=== PATIENT | female | born 1990 ===

== ENCOUNTER 2018-02-16 12:53 | Emergency (ER) | payer MEDICAID ==
[2018-02-16 12:59] VITALS: RESP 18; O2SAT 99; BMI 32.9
--- NOTE | 2018-02-16 13:39 | ED PDOC ---
Arrival/HPI - General Chief Complaint: Abdominal Pain Past Medical History - Infectious Disease Hx of Infectious Diseases: None - Reproductive Menopause: No - Psychiatric Hx Substance Use: No - Anesthesia Hx Anesthesia: No Family/Social History Smoking Status: Former Smoker Hx Alcohol Use: No Hx Substance Use: No Allergies/Home Meds Allergies/Adverse Reactions: Allergies nupur Allergy (Verified 02/16/18 13:21) RASH Home Medications: Home Meds Medication Instructions Recorded Confirmed No Known Home Med 02/16/18 02/16/18 Physical Exam Vital Signs Temp Pulse Resp BP Pulse Ox 02/16/18 12:56 98.3 F 122 H 18 118/87 99 Disposition/Present on Arrival - Present on Arrival History of DVT/PE: No History of Uncontrolled Diabetes: No Urinary Catheter: No History of Decub. Ulcer: No History Surgical Site Infection Following: None - Disposition
--- NOTE | 2018-02-16 13:41 | ED PDOC ---
Arrival/HPI - General Historian: Patient - History of Present Illness Narrative History of Present Illness (Text): 02/16/18 13:45 27 year old female with no significant PMH presents to the emergency department complaining of intermittent non-bloody vomiting for the past 1.5 weeks. Patient reports associated constipation and intermittent mild lower abdominal cramping. She notes vaginal spotting yesterday, no clots, LMP 01/04/18. No reecnt travel or immobilization, h/o malignancy or DVT/PE. Pt anxious in ED. She denies fevers, chills, back pain, urinary symptoms, dizziness, headache, vision changes, vaginal discharge/odor, chest pain, SOB, diarrhea, numbness, weakness, pares thesias, calf pain, calf swelling, hemoptysis, cough, or any other complaint. Time/Duration: > week Symptom Course: Unchanged Activities at Onset: Light Context: Home <Krysta Kessler - Last Filed: 02/17/18 10:37> <Daniel Dominguez - Last Filed: 02/17/18 14:11> - General Chief Complaint: GI Problem Time Seen by Provider: 02/16/18 13:00 Past Medical History - Provider Review Nursing Documentation Reviewed: Yes - Infectious Disease Hx of Infectious Diseases: None - Reproductive Menopause: No - Psychiatric Hx Anxiety: Yes Hx Substance Use: No - Anesthesia Hx Anesthesia: No <Krysta Kessler - Last Filed: 02/17/18 10:37> Family/Social History - Physician Review Nursing Documentation Reviewed: Yes Family/Social History: No Known Family HX Smoking Status: Former Smoker Hx Alcohol Use: No Hx Substance Use: No <Krysta Kessler - Last Filed: 02/17/18 10:37> Allergies/Home Meds <Krysta Kessler - Last Filed: 02/17/18 10:37> <Daniel Dominguez - Last Filed: 02/17/18 14:11> Allergies/Adverse Reactions: Allergies nupur Allergy (Verified 02/16/18 13:21) RASH Review of Systems - Physician Review All systems were reviewed & negative as marked: Yes - Review of Systems Constitutional: Normal. absent: Fevers Eyes: Normal. absent: Vision Changes ENT: Normal. absent: Sinus Congestion Respiratory: Normal. absent: SOB, Cough Cardiovascular: Normal. absent: Chest Pain, Palpitations Gastrointestinal: Abdominal Pain, Constipation, Vomiting. absent: Diarrhea, Appetite Changes Genitourinary Female: Vaginal Bleeding. absent: Dysuria, Frequency, Hematuria Musculoskeletal: Normal. absent: Back Pain, Neck Pain Skin: Normal. absent: Rash Neurological: Normal. absent: Headache, Dizziness Endocrine: Normal Hemo/Lymphatic: Normal Psychiatric: Anxiety <Motter,Krysta - Last Filed: 02/17/18 10:37> Physical Exam Vital Signs Reviewed: Yes Vital Signs Temp Pulse Resp BP Pulse Ox 02/16/18 12:56 98.3 F 122 H 18 118/87 99 Temperature: Afebrile Blood Pressure: Normal Pulse: Tachycardic Respiratory Rate: Normal Appearance: Positive for: Well-Appearing, Non-Toxic, Comfortable Pain Distress: None Mental Status: Positive for: Alert and Oriented X 3 - Systems Exam Head: Present: Atraumatic, Normocephalic Pupils: Present: PERRL Extroacular Muscles: Present: EOMI Conjunctiva: Present: Normal Mouth: Present: Moist Mucous Membranes Neck: Present: Normal Range of Motion. No: Meningeal Signs, MIDLINE TENDERNESS, Lymphadenopathy Respiratory/Chest: Present: Clear to Auscultation, Good Air Exchange. No: Respiratory Distress, Accessory Muscle Use Cardiovascular: Present: Regular Rate and Rhythm, Normal S1, S2, Peripheal Pulses Present. No: Murmurs Abdomen: Present: Normal Bowel Sounds. No: Tenderness, Distention, Peritoneal Signs Back: Present: Normal Inspection Upper Extremity: Present: Normal Inspection, Normal ROM, NORMAL PULSES, Neurovascularly Intact, Capillary Refill < 2s. No: Cyanosis, Edema Lower Extremity: Present: Normal Inspection, NORMAL PULSES, Normal ROM, Neuro vascularly Intact, Capillary Refill < 2 s. No: Edema, CALF TENDERNESS, Debbie's Sign, Tenderness, Swelling Neurological: Present: GCS=15, CN II-XII Intact, Speech Normal, Motor Func Grossly Intact, Normal Sensory Function, Gait Normal Skin: Present: Warm, Dry, Normal Color. No: Rashes Lymphatic: Present: Cervical Adenopathy Psychiatric: Present: Alert, Oriented x 3, Normal Insight, Normal Concentration, Normal Affect, Anxious <Motter,Krysta - Last Filed: 02/17/18 10:37> Vital Signs Temp Pulse Resp BP Pulse Ox 02/16/18 17:51 98.1 F 104 H 18 122/88 99 02/16/18 12:56 98.3 F 122 H 18 118/87 99 <Daniel Dominguez - Last Filed: 02/17/18 14:11> Medical Decision Making ED Course and Treatment: 02/16/18 13:39 Impression: 27 year old female who presents to the emergency department complaining of vomiting. Plan: -- BBK -- Labs -- Urine culture -- POC Urine test -- Pelvic exam -- Urinalysis -- Transvaginal US -- Reassess and disposition Patient very well appearing on initial examination, however appears anxious as she was unaware she was . Patient on pulse ox, mildly tachycardic at 102 on my initial exam. Progress Notes: POC urine test positive; patient is A1; 6 weeks by LMP All labs unremarkable TV US shows live IUP at 8 weeks gestation O + blood type, no indication for Rhogam 17:00 Patient tolerating PO without vomiting, asking for a full meal as she is very hungry. Denies any SOB, chest pain, abdominal pain, or any other physical complaints. Tachycardia has improved, HR 86 on my re-evaluation after fluids and rest. Diagnostic testing results and plan of care discussed with patient, and strict instructions given regarding prescriptions, importance of follow up, and signs to return to Emergency Department, to include abdominal pain, vaginal bleeding, SOB, cough, headache, or any other new/worsening symptoms. Patient verbalizes understanding of discussion. Patient A&Ox3, ambulating with steady gait, stable for discharge home. Re-evaluation Time: 17:00 - Lab Interpretations I have reviewed the lab results: Yes Interpretation: All labs normal - RAD Interpretation Narrative RAD Interpretations (Text): Transvaginal Pelvic US: Findings: The uterus measures approximately 12.2 x 6.7 x 8.7 cm. Anteverted. There is a single intrauterine fetus present. 5 mm yolk sac. The gestational sac measures 3.5 cm and is compatible with a gestational age of 8 weeks 4 days. The crown-rump length measures 2.7 cm and is compatible with a gestational age of 9 weeks 3 days. There is heart motion which measured 162 BPM. The right ovary is not visualized. The left ovary measures 2.5 x 1.8 x 2.7 cm. Blood flow is demonstrated to the left ovary. Impression: Live single intrauterine with estimated gestational age 8 weeks 4 days by gestational sac calculation and 9 weeks 3 days by crown-rump length calculation. heart rate 162 bpm. Advise an anomaly screen at 16-18 weeks gestational age <Ephraim Kessleryssa - Last Filed: 02/17/18 10:37> - Lab Interpretations Lab Results: 02/16/18 14:40 02/16/18 14:40 Lab Results 02/16/18 16:01: Blood Type Confirm O POSITIVE 02/16/18 15:30: Blood Type O POSITIVE, Antibody Screen Negative, BBK History Checked No verified bt 02/16/18 14:40: Beta HCG, Quant [id number] H 02/16/18 14:40: Sodium 137, Potassium 4.0, Chloride 104, Carbon Dioxide 22, Anion Gap 14, BUN 7, Creatinine 0.5 L, Est GFR ( Amer) > 60, Est GFR (Non-Af Amer) > 60, Random Glucose 88, Calcium 9.3, Total Bilirubin 0.3, AST 19, ALT 22, Alkaline Phosphatase 79, Total Protein 7.8, Albumin 4.1, Globulin 3.6, Albumin/Globulin Ratio 1.1 02/16/18 14:40: PT 12.1, INR 1.06, APTT 30.0 02/16/18 14:40: WBC 10.1, RBC 4.35, Hgb 13.3, Hct 38.9, MCV 89.4, MCH 30.6, MCHC 34.2, RDW 11.5, Plt Count 286, MPV 10.8, Gran % 69.1 H, Lymph % (Auto) 21.7 L, [place] % (Auto) 8.2 H, Eos % (Auto) 0.9 L, Baso % (Auto) 0.1, Gran # 7.01 H, Lymph # (Auto) 2.2, [place] # (Auto) 0.8 H, Eos # (Auto) 0.1, Baso # (Auto) 0.01 02/16/18 14:10: Urine Color Yellow, Urine Appearance Clear, Urine pH 8.5, Ur Specific Kirk[place] 1.015, Urine Protein Negative, Urine Glucose (UA) Negative, Urine Ketones Negative, Urine Blood Negative, Urine Nitrate Negative, Urine Bilirubin Negative, Urine Urobilinogen 1.0 H, Ur Leukocyte Esterase Negative, Urine HCG, Qual Positive - RAD Interpretation Radiology Orders: 02/16/18 13:38 OB TRANSVAGINAL [US] Stat - Medication Orders Current Medication Orders: Discontinued Medications Sodium Chloride (Sodium Chloride 0.9%) 1,000 mls @ 999 mls/hr IV .Q1H1M STA Stop: 02/16/18 14:54 Last Admin: 02/16/18 14:30 Dose: 999 mls/hr eMAR Start Stop Document 02/16/18 14:30 LA (Rec: 02/16/18 14:38 LA [facility] [id number]) Intravenous Solution Start Date 02/16/18 Start Time 14:30 End Date 02/16/18 End time 15:31 Total Infusion Time 61 <Daniel Dominguez - Last Filed: 02/17/18 14:11> - Scribe Statement The provider has reviewed the documentation as recorded by the Scribjef Boudreaux Provider Scribe Attestation: All medical record entries made by the Scribe were at my direction and personally dictated by me. I have reviewed the chart and agree that the record accurately reflects my personal performance of the history, physical exam, medical decision making, and the department course for this patient. I have also personally directed, reviewed, and agree with the discharge instructions and disposition. <Krysta Kessler - Last Filed: 02/17/18 10:37> - PA / IMAGE SCIENTIST / Resident Statement / has reviewed & agrees with the documentation as recorded. <Daniel Dominguez - Last Filed: 02/17/18 14:11> Disposition/Present on Arrival - Present on Arrival Any Indicators Present on Arrival: No History of DVT/PE: No History of Uncontrolled Diabetes: No Urinary Catheter: No History of Decub. Ulcer: No History Surgical Site Infection Following: None - Disposition Have Diagnosis and Disposition been Completed?: Yes Disposition Time: 17:00 <Krysta Kessler - Last Filed: 02/17/18 10:37> <Daniel Dominguez - Last Filed: 02/17/18 14:11> - Disposition Diagnosis: and not yet delivered in first trimester, Vomiting affecting Disposition: HOME/ ROUTINE Condition: IMPROVED Discharge Instructions (ExitCare): Morning Sickness (DC), Care, - The Third Month Additional Instructions: Increase fluids Take vitamins daily [place] diet Followup with OBGYN within 2 days Followup with primary within 2 days Return to ER for any new/worsening symptoms Prescriptions: 21/Iron Fu/Folic Acid [ Complete Caplet] 1 each PO DAILY #60 tablet [facility] [Outside] - Follow up with primary Henry Mahajan MD [Staff Provider] - Follow up with primary Forms: [employer] (Luxem[place]ish)
[2018-02-16] MEDS ORDERED: Sodium Chloride 0.9% 1,000 ML IV STA (13:54)
[2018-02-16 14:24] LABS: PH,URINE 8.5 (4.7-8.0); URINE BILIRUBIN NEGATIVE (NEGATIVE); URINE BLOOD NEGATIVE (NEGATIVE); URINE GLUCOSE (UA) NEGATIVE (NEGATIVE); URINE LEUKOCYTE ESTERASE NEGATIVE Leu/uL (NEGATIVE); URINE PROTEIN NEGATIVE mg/dL (<30 mg/dL)
[2018-02-16 14:25] LABS: HCG,QUALITATIVE URINE POSITIVE (NEGATIVE); URINE APPEARANCE CLEAR (CLEAR); URINE COLOR YELLOW (YELLOW)
[2018-02-16 14:51] LABS: BASO # 0.01 K/mm3 (0.0-2.0); BASO % 0.1 % (0.0-3.0); EOS # 0.1 (0.0-0.7); EOS % 0.9 % (1.5-5.0); GRAN # 7.01 (1.4-6.5); GRAN % 69.1 % (50.0-68.0); HEMOGLOBIN 13.3 g/dL (12.0-16.0); LYMPH # 2.2 (1.2-3.4); LYMPH % 21.7 % (22.0-35.0); MEAN CELL VOLUME 89.4 fl (80.0-105.0); MEAN CORPUSCULAR HEMOGLOBIN 30.6 pg (25.0-35.0); MEAN CORPUSCULAR HGB CONC 34.2 g/dl (31.0-37.0); MEAN PLATELET VOLUME 10.8 fl (7.0-11.0); MONO # 0.8 (0.1-0.6); MONO % 8.2 % (1.0-6.0); RBC 4.35 10^6/uL (3.5-6.1); RED CELL DISTRIBUTION WIDTH 11.5 % (11.5-14.5); WHITE BLOOD COUNT 10.1 10^3/uL (4.5-11.0)
[2018-02-16 14:57] LABS: INR 1.06; PROTHROMBIN TIME 12.1 SECONDS (9.4-12.5)
[2018-02-16 14:59] LABS: ALB/GLOB RATIO 1.1 (1.1-1.8); ALBUMIN 4.1 g/dL (3.0-4.8); ALT/SGPT 22 U/L (7-56); AST/SGOT 19 U/L (14-36); BLOOD UREA NITROGEN 7 mg/dL (7-21); CALCIUM 9.3 mg/dL (8.4-10.5); GFR NON-AFRICAN AMERICAN > 60
--- NOTE | 2018-02-16 17:19 | US ---
Date of service: 02/16/2018 Indication: OB, LMP 01/04/18 Comparison: None available Technique : Transvaginal pelvic ultrasound. Findings: The uterus measures approximately 12.2 x 6.7 x 8.7 cm. Anteverted. There is a single intrauterine fetus present. 5 mm yolk sac. The gestational sac measures 3.5 cm and is compatible with a gestational age of 8 weeks 4 days. The crown-rump length measures 2.7 cm and is compatible with a gestational age of 9 weeks 3 days. There is heart motion which measured 162 BPM. The right ovary is not visualized. The left ovary measures 2.5 x 1.8 x 2.7 cm. Blood flow is demonstrated to the left ovary. Impression: Live single intrauterine with estimated gestational age 8 weeks 4 days by gestational sac calculation and 9 weeks 3 days by crown-rump length calculation. heart rate 162 bpm. Advise an anomaly screen at 16-18 weeks gestational age
[2018-02-16 17:52] VITALS: BP 122/88; PULSE 104; TEMP 98.1
== END 2018-02-16 18:15 | disposition home or self-care (01) ==
LOC: ED 12:53
DX: O21.9 Vomiting of pregnancy, unspecified (principal); Z3A.08 8 weeks gestation of pregnancy
CPT/HCPCS: 76817; 80053; 81003; 84702; 84703; 85025; 85610; 85730; 86850; 86900; 87086; 96360; 99283; J7030

== ENCOUNTER 2018-03-05 20:47 | Emergency (ER) | payer MEDICAID ==
[2018-03-05 20:55] VITALS: BMI 33.6
[2018-03-05 20:57] VITALS: TEMP 97.7
--- NOTE | 2018-03-05 21:10 | ED PDOC ---
Arrival/HPI <HeydiGilbert - Last Filed: 03/05/18 21:27> - General Historian: Patient - History of Present Illness Narrative History of Present Illness (Text): 03/05/18 21:07 27 y/o female, no significant pmh, nkda, approx. 11 weeks , c/o on and off pelvic cramp pain after the fall 2 days ago on her buttock region. Pt. stated that she has no lower back pain, no vaginal spotting or bleeding, concerning for her so she came to the ER for evaluation, stated that she feels well at this time, no pain or discomfort, no urinary symptoms, no abdominal or pelvic pain, no night sweat, no rash, no numbness or tingling, no other medical or psychological complaints. <Leonardo Rushing - Last Filed: 03/06/18 00:34> - General Chief Complaint: Abdominal Pain Past Medical History - Provider Review Nursing Documentation Reviewed: Yes - Infectious Disease Hx of Infectious Diseases: None - Psychiatric Hx Anxiety: Yes Hx Substance Use: No - Anesthesia Hx Anesthesia: No <Leonardo Rushing - Last Filed: 03/06/18 00:34> Family/Social History - Physician Review Nursing Documentation Reviewed: Yes Family/Social History: Unknown Family HX Smoking Status: Former Smoker Hx Alcohol Use: No Hx Substance Use: No <Leonardo Rushing - Last Filed: 03/06/18 00:34> Allergies/Home Meds <Heydi,Gilbert - Last Filed: 03/05/18 21:27> <Leonardo Rushing - Last Filed: 03/06/18 00:34> Allergies/Adverse Reactions: Allergies nupur Allergy (Verified 03/05/18 20:55) RASH seafood Allergy (Uncoded 03/05/18 20:55) ANAPHYLAXIS Home Medications: Home Meds Medication Instructions Recorded Confirmed No Known Home Med 03/05/18 03/05/18 Review of Systems - Review of Systems Constitutional: absent: Fatigue, Fevers Eyes: absent: Vision Changes ENT: absent: Hearing Changes Respiratory: absent: SOB, Cough Cardiovascular: absent: Chest Pain Gastrointestinal: absent: Abdominal Pain, Nausea, Vomiting Genitourinary Female: absent: Dysuria, Frequency, Hematuria, Urine Output Changes, Vaginal Bleeding, Vaginal Discharge Skin: absent: Rash, Pruritis Neurological: absent: Headache, Dizziness Psychiatric: absent: Anxiety, Depression <Leonardo Rushing - Last Filed: 03/06/18 00:34> Physical Exam Vital Signs Temp Pulse Resp BP Pulse Ox 03/05/18 20:56 97.7 F 76 18 121/83 97 <Gilbert Soliz - Last Filed: 03/05/18 21:27> Vital Signs Reviewed: Yes Vital Signs Temp Pulse Resp BP Pulse Ox 03/05/18 20:56 97.7 F 76 18 121/83 97 Temperature: Afebrile Blood Pressure: Normal Pulse: Regular Respiratory Rate: Normal Appearance: Positive for: Well-Appearing, Non-Toxic, Comfortable Pain Distress: None Mental Status: Positive for: Alert and Oriented X 3 - Systems Exam Head: Present: Atraumatic, Normocephalic Pupils: Present: PERRL Extroacular Muscles: Present: EOMI Conjunctiva: Present: Normal Mouth: Present: Moist Mucous Membranes Neck: Present: Normal Range of Motion Respiratory/Chest: Present: Clear to Auscultation, Good Air Exchange. No: Respiratory Distress, Accessory Muscle Use Cardiovascular: Present: Regular Rate and Rhythm, Normal S1, S2. No: Murmurs Abdomen: No: Tenderness, Distention, Peritoneal Signs, Rebound, Guarding Genitourinary/Pelvic Exam: Present: Other (Patient refused. ) Back: Present: Normal Inspection. No: CVA Tenderness, Midline Tenderness, Paraspinal Tenderness, Pain with Leg Raise, Decubitus Ulcer Upper Extremity: Present: Normal Inspection. No: Cyanosis, Edema Lower Extremity: Present: Normal Inspection. No: Edema Neurological: Present: GCS=15, CN II-XII Intact, Speech Normal, Motor Func Grossly Intact, Gait Normal, Memory Normal Skin: Present: Warm, Dry, Normal Color. No: Rashes Psychiatric: Present: Alert, Oriented x 3, Normal Insight, Normal Concentration <Leonardo Rushing - Last Filed: 03/06/18 00:34> Medical Decision Making - RAD Interpretation Radiology Orders: 03/05/18 21:06 TRANSVAGINAL [US] Stat <Gilbert Soliz - Last Filed: 03/05/18 21:27> ED Course and Treatment: 03/05/18 21:11 -labs -sonogram -observe and reassess 03/06/18 00:33 -Sonogram: Single live intrauterine gestation 12 weeks 2 days gestation. heart rate is 150 beats per minute. -Labs show no acute findings -Beta hcg [id number] from [id number] -UA show UTI -Blood type is O+ -Pt. feels asympomatic and no pain, discussed about the labs/radiology results, request to be discharged home. -Discharge home with education on taking tylenol as needed, follow up with your own pmd and obgyn within 2 days, return to the ER for any new or worsening signs or symptoms. - RAD Interpretation Narrative RAD Interpretations (Text): 03/05/18 23:04 US OB Transvaginal reviewed, Findings Uterus Single Live intrauterine gestation. Gestational sac diameter measures 5.5 cm, equivalent to 11 weeks 4 days gestation. CRL Measures 5.04 cm, equivalent to 11 weeks 5 days gestation. Yolk sac measures 0.65 cm. Heart rate: 150 bpm. Lydia-gestational hemorrhage: None. Uterus measures 13.0 x 7.4 x 8.8 cm. Anteverted. No mass. Cervix Measures 3.5 cm. Long and closed. Nabothian cyst measures 1.6 x 0.98 cm. Right Ovary Measures 1.8 x 1.3 x 2.4 cm. No mass. Normal flow. Left Ovary Measures 3.0 x 1.4 x 3.4 cm. No mass. Normal flow. Free Fluid None. Other Findings None. Impression Single live intrauterine gestation 12 weeks 2 days gestation. heart rate is 150 beats per minute. Electronically signed on Mar 05, 2018 11:00:08 PM EST by: Shola Alfaro M.D., GHADA Certified By ABR & CBCCT Fellowship Trained MRI and CT Specialist Radiology Orders: 03/05/18 21:06 TRANSVAGINAL [US] Stat Procedure OB transvaginal Ultrasound History Cramping/. Comparison None available. Findings Uterus Single Live intrauterine gestation. Gestational sac diameter measures 5.5 cm, equivalent to 11 weeks 4 days gestation. CRL Measures 5.04 cm, equivalent to 11 weeks 5 days gestation. Yolk sac measures 0.65 cm. Heart rate: 150 bpm. Lydia-gestational hemorrhage: None. Uterus measures 13.0 x 7.4 x 8.8 cm. Anteverted. No mass. Cervix Measures 3.5 cm. Long and closed. Nabothian cyst measures 1.6 x 0.98 cm. Right Ovary Measures 1.8 x 1.3 x 2.4 cm. No mass. Normal flow. Left Ovary Measures 3.0 x 1.4 x 3.4 cm. No mass. Normal flow. Free Fluid None. Other Findings None. Impression Single live intrauterine gestation 12 weeks 2 days gestation. heart rate is 150 beats per minute. Electronically signed on Mar 05, 2018 11:00:08 PM EST by: Shola Alfaro M.D., GHADA Certified By ABR & CBCCT Fellowship Trained MRI and CT Specialist Development Editor: Radiologist <Leonardo Rushing - Last Filed: 03/06/18 00:34> - PA / OFFICE RN / Resident Statement VICKY has reviewed & agrees with the documentation as recorded. <Gilbert Soliz - Last Filed: 03/05/18 21:27> - PA / OFFICE RN / Resident Statement VICKY has reviewed & agrees with the documentation as recorded. <Leonardo Rushing - Last Filed: 03/06/18 00:34> Disposition/Present on Arrival <Gilbert Soliz - Last Filed: 03/05/18 21:27> - Present on Arrival Any Indicators Present on Arrival: No History of DVT/PE: No History of Uncontrolled Diabetes: No Urinary Catheter: No History of Decub. Ulcer: No History Surgical Site Infection Following: None - Disposition Have Diagnosis and Disposition been Completed?: Yes Disposition Time: 23:15 Patient Plan: Discharge <Leonardo Rushing - Last Filed: 03/06/18 00:34> - Disposition Diagnosis: , Pelvic pain Disposition: HOME/ ROUTINE Patient Problems: Current Active Problems Problem Status Onset Pelvic pain Acute Acute Condition: GOOD Additional Instructions: -Discharge home with education on taking tylenol as needed, follow up with your own pmd and obgyn within 2 days, return to the ER for any new or worsening signs or symptoms. Referrals: Mariposa Ty MD [Staff Provider] - Follow up with primary [facility] [Outside] - Follow up with primary Forms: [employer] (Al[place]ian), WORK NOTE
[2018-03-05 21:36] LABS: BASO # 0.01 K/mm3 (0.0-2.0); BASO % 0.1 % (0.0-3.0); EOS # 0.1 (0.0-0.7); EOS % 1.6 % (1.5-5.0); GRAN # 5.05 (1.4-6.5); GRAN % 61.6 % (50.0-68.0); HEMOGLOBIN 11.9 g/dL (12.0-16.0); LYMPH # 2.5 (1.2-3.4); LYMPH % 30.7 % (22.0-35.0); MEAN CELL VOLUME 89.7 fl (80.0-105.0); MEAN CORPUSCULAR HEMOGLOBIN 30.7 pg (25.0-35.0); MEAN CORPUSCULAR HGB CONC 34.3 g/dl (31.0-37.0); MEAN PLATELET VOLUME 10.5 fl (7.0-11.0); MONO # 0.5 (0.1-0.6); RBC 3.87 10^6/uL (3.5-6.1); WHITE BLOOD COUNT 8.2 10^3/uL (4.5-11.0)
[2018-03-05 21:54] LABS: ALB/GLOB RATIO 1.2 (1.1-1.8); ALBUMIN 3.9 g/dL (3.0-4.8); ALT/SGPT 18 U/L (7-56); AST/SGOT 18 U/L (14-36); BLOOD UREA NITROGEN 7 mg/dL (7-21); CALCIUM 9.1 mg/dL (8.4-10.5); GFR NON-AFRICAN AMERICAN > 60
[2018-03-05 23:57] LABS: URINE BILIRUBIN NEGATIVE (NEGATIVE); URINE BLOOD NEGATIVE (NEGATIVE); URINE GLUCOSE (UA) NEGATIVE (NEGATIVE); URINE LEUKOCYTE ESTERASE NEGATIVE Leu/uL (NEGATIVE); URINE PROTEIN NEGATIVE mg/dL (<30 mg/dL); URINE UROBILINOGEN 0.2 E.U./dL (<1 E.U./dL)
[2018-03-06 00:10] LABS: URINE APPEARANCE CLEAR (CLEAR); URINE COLOR YELLOW (YELLOW)
[2018-03-06 00:50] VITALS: BP 129/75; PULSE 70; RESP 17; O2SAT 98
--- NOTE | 2018-03-06 11:46 | US ---
Date of service: 03/05/2018 Indication: lower pelvic pain Comparison: Ob transvaginal ultrasound performed 02/16/18 Technique: Transvaginal pelvic ultrasound Findings: The uterus measures approximately 13.0 x 7.4 x 8.8 cm. Anteverted. Cervix length measures 3.5 cm. 1.6 cm nabothian cyst. There is a single intrauterine fetus present. 7 mm yolk sac. The gestational sac measures 5.5 cm and is compatible with a gestational age of 11 weeks 4 days. The crown-rump length measures 5.0 cm and is compatible with a gestational age of 11 weeks 5 days. There is heart motion which measured 150 BPM. The right ovary measures 1.8 x 1.3 x 2.4 cm. The left ovary measures 3.0 x 1.4 x 3.4 cm. Blood flow was demonstrated to both ovaries. Impression: Live single intrauterine with estimated gestational age 11 weeks 4 days by gestational sac calculation and 11 weeks 5 days by crown-rump length calculation. heart rate 150 bpm. Advise an anomaly screen at 16-18 weeks gestational age Preliminary impression was provided by [facility].
== END 2018-03-06 00:49 | disposition home or self-care (01) ==
LOC: ED 20:47
DX: O26.91 Pregnancy related conditions, unspecified, first trimester (principal); R10.2 Pelvic and perineal pain; Z3A.11 11 weeks gestation of pregnancy

== ENCOUNTER 2018-03-25 20:32 | Emergency (ER) | payer MEDICAID ==
[2018-03-25 21:13] VITALS: BMI 32.2
[2018-03-25 21:17] VITALS: TEMP 98.8; O2SAT 98
--- NOTE | 2018-03-25 21:47 | ED PDOC ---
Arrival/HPI - General Chief Complaint: Female Genitourinary Time Seen by Provider: 03/25/18 21:22 Historian: Patient - History of Present Illness Narrative History of Present Illness (Text): 03/25/18 22:04 28yo female who present with complaint of intermittent suprapubic cramping pain that radiates to her lower back x 3days. States she is currently 15weeks , spoke with her OB and was told to come tomorrow. States she came to ED for evaluation of the fetus. She otherwise denies vaginal bleeding, nausea, vomiting, diarrhea, urinary symptoms, hematuria, vaginal discharge, any other complaint. Past Medical History - Provider Review Nursing Documentation Reviewed: Yes - Infectious Disease Hx of Infectious Diseases: None - Psychiatric Hx Anxiety: Yes Hx Substance Use: No - Anesthesia Hx Anesthesia: No Family/Social History - Physician Review Nursing Documentation Reviewed: Yes Family/Social History: Unknown Family HX Smoking Status: Former Smoker Hx Alcohol Use: No Hx Substance Use: No Allergies/Home Meds Allergies/Adverse Reactions: Allergies nupur Allergy (Verified 03/25/18 21:12) RASH Penicillins Allergy (Verified 03/25/18 21:12) ANAPHYLAXIS seafood Allergy (Uncoded 03/25/18 21:12) ANAPHYLAXIS Home Medications: Home Meds Medication Instructions Recorded Confirmed No Known Home Med 03/05/18 03/25/18 Review of Systems - Physician Review All systems were reviewed & negative as marked: Yes - Review of Systems Constitutional: Normal Eyes: Normal ENT: Normal Respiratory: Normal Cardiovascular: Normal Gastrointestinal: Abdominal Pain. absent: Constipation, Diarrhea, Nausea, Vomiting, Hematochezia, Hematemesis Genitourinary Female: Normal Musculoskeletal: Normal Skin: Normal Neurological: Normal Endocrine: Normal Hemo/Lymphatic: Normal Psychiatric: Normal Physical Exam Vital Signs Reviewed: Yes Vital Signs Temp Pulse Resp BP Pulse Ox 03/25/18 21:13 98.8 F 86 18 125/88 98 Temperature: Afebrile Blood Pressure: Normal Pulse: Regular Respiratory Rate: Normal Appearance: Positive for: Well-Appearing, Non-Toxic, Comfortable Pain Distress: None Mental Status: Positive for: Alert and Oriented X 3 - Systems Exam Head: Present: Atraumatic, Normocephalic Pupils: Present: PERRL Extroacular Muscles: Present: EOMI Conjunctiva: Present: Normal Mouth: Present: Moist Mucous Membranes Neck: Present: Normal Range of Motion Respiratory/Chest: Present: Clear to Auscultation, Good Air Exchange. No: Respiratory Distress, Accessory Muscle Use Cardiovascular: Present: Regular Rate and Rhythm, Normal S1, S2. No: Murmurs Abdomen: Present: Distention (Gravid abdomen). No: Tenderness, Peritoneal Signs Back: Present: Normal Inspection Upper Extremity: Present: Normal Inspection. No: Cyanosis, Edema Lower Extremity: Present: Normal Inspection. No: Edema Neurological: Present: GCS=15, CN II-XII Intact, Speech Normal Skin: Present: Warm, Dry, Normal Color. No: Rashes Psychiatric: Present: Alert, Oriented x 3, Normal Insight, Normal Concentration Medical Decision Making ED Course and Treatment: EXAM: US Obstetrical, Complete >14 weeks Electronically signed on Mar 26, 2018 12:14:53 AM EST by: Aubrye Hinojosa M.D. IMPRESSION: 1. Single living intrauterine . No acute abnormality. 2. There has been appropriate interval growth. FINDINGS FETUS: There is a single living intrauterine gestation, estimated gestational age 15 weeks and 2 days. POSITION: position is cephalic. HEART RATE: The heart rate is 132 beats per minute. 03/26/18 01:13 PT in ED for stated history. She was not in any distress. US report was DW the pt. she was however strongly advised to f/u with OB for monitor of possible early contraction. She verbalized understanding of the instructions. Disposition/Present on Arrival - Present on Arrival Any Indicators Present on Arrival: No History of DVT/PE: No History of Uncontrolled Diabetes: No Urinary Catheter: No History of Decub. Ulcer: No History Surgical Site Infection Following: None - Disposition Have Diagnosis and Disposition been Completed?: Yes Diagnosis: Abdominal pain, Disposition: HOME/ ROUTINE Disposition Time: 22:10 Condition: STABLE Discharge Instructions (ExitCare): Acute Abdomen (Belly Pain), Adult (DC) Additional Instructions: Follow up with your OB Return to ED for any new symptoms Referrals: PCP,NO [Primary Care Provider] - Follow up with primary Henry Mahajan MD [Staff Provider] - Follow up with primary Forms: [employer] (Armenian)
[2018-03-25 22:03] LABS: URINE APPEARANCE SLIGHT-CLOUDY (CLEAR); URINE BILIRUBIN NEGATIVE (NEGATIVE); URINE BLOOD NEGATIVE (NEGATIVE); URINE COLOR YELLOW (YELLOW); URINE GLUCOSE (UA) NEGATIVE (NEGATIVE); URINE LEUKOCYTE ESTERASE TRACE Leu/uL (NEGATIVE); URINE PROTEIN NEGATIVE mg/dL (<30 mg/dL); URINE UROBILINOGEN 0.2 E.U./dL (<1 E.U./dL)
[2018-03-26 01:10] VITALS: BP 117/69; PULSE 72; RESP 16
--- NOTE | 2018-03-26 16:25 | US ---
Date of service: 03/25/2018 PROCEDURE: OB Pelvic Ultrasound HISTORY: abdominal pain/ LMP: 12/04/2017 COMPARISON: Comparison is made with the previous study dated 03/05/2018 FINDINGS: UTERUS: BPD: 2.73 centimeter which corresponding to gestational age of 14 weeks 6 days Heart rate: 132 bpm. age (Ultrasound estimated): 15 weeks 2 days +/-1 week 0 day Lydia-gestational hemorrhage: None. Date of delivery (Ultrasound estimated) : 09/14/2018 Uterus measures 16.6 x 7.1 x 11.1 cm. The central is seen in the anterior aspect of the gestational sac. CERVIX: Long and closed. No cervical abnormality seen. RIGHT OVARY: Was not visualized. LEFT OVARY: Was not visualized. FREE FLUID: None. OTHER FINDINGS: None. IMPRESSION: Single intrauterine live with ultrasound estimated gestational age of 15 weeks 2 days +/-1 week 0 day. Estimated date of delivery by ultrasound is 09/14/2018 There has been appropriate interval groove. No ultrasound evidence of acute pathology noted in this exam. The ovaries were not visualized. Preliminary report was submitted by [facility].
== END 2018-03-26 01:09 | disposition home or self-care (01) ==
LOC: ED 20:32
DX: O26.892 Other specified pregnancy related conditions, second trimester (principal); R10.9 Unspecified abdominal pain; Z3A.15 15 weeks gestation of pregnancy